=== PATIENT | male | born 1945 | race Caucasian/White ===

== ENCOUNTER 2017-11-08 08:15 | Day surgery (SDC) | payer OTHER ==
[2017-11-08] MEDS: BETADINE OPTH PREP OP PRN ×2 (09:35→10:12)
[2017-11-08] MEDS: TETRACAINE 0.5% UNIT-DOSE OP PRN ×2 (09:35→10:12)
[2017-11-08] MEDS: CYCLOGYL 2% OPTH OP PRN ×3 (09:36→09:46)
[2017-11-08] MEDS ORDERED: LIDOCAINE 1% 20 ML MDV ID STA (09:43)
[2017-11-08] MEDS ORDERED: BRIMONIDINE TARTRATE 0.2% OPTH SOL OP PRN (09:43)
[2017-11-08] MEDS ORDERED: DEX-MOXI-KETOR OPTH INJ 1/0.5/0.4 MG/ML IO ONE (09:43)
[2017-11-08] MEDS ORDERED: LIDOCAINE 1%/PHENYLEPHRINE 1.5% BSS (SURGERY) INTRAOCULA ONE (09:43)
[2017-11-08] MEDS ORDERED: BSS WITH EPINEPHRINE OP ONE (09:43)
[2017-11-08] MEDS ORDERED: ZOFRAN 4 MG/2 ML IVP ONE (09:43)
[2017-11-08] MEDS ORDERED: ZOFRAN 4 MG/2 ML ONE (10:23)
[2017-11-08] MEDS ORDERED: VERSED ONE (10:23)
[2017-11-08] MEDS ORDERED: SUBLIMAZE ONE (10:23)
[2017-11-08 11:29] VITALS: BMI 24.5
[2017-11-08 12:38] VITALS: TEMP 97.3
[2017-11-08 15:29] VITALS: BP 103/62
== END 2017-11-08 11:20 | disposition short-term general hospital (02) ==
LOC: SURG 08:15
PROVIDERS: ATTEND Ophthalmology
DX: H25.811 Combined forms of age-related cataract, right eye (principal)

== ENCOUNTER 2017-11-08 11:21 | Emergency (ER) ==
[2017-11-08 11:29] VITALS: BP 144/85; TEMP 97; BMI 24.5
--- NOTE | 2017-11-08 11:32 | ED.PDOC ---
General ED Provider: Dr. RIGO LORD Chief Complaint: Palpitations Stated Complaint: SLOW HEART RATE. 72 y/o male was in recovery room post cataract surgery OD when he began to experience sinus bradycardia with HR decreased into the 30-40s. Pt asymptomatic. Information given by HEALTH INFORMATION TECHNOLOGIST for surgical department. Had received Cyclogel in the OR Time Seen by Physician: 11:15 Mode of Arrival: Stretcher Information Source: Patient, Nurse Exam Limitations: No limitations Primary Care Provider: BRANT BARTLETT Nursing and Triage Documentation Reviewed and Agree: Yes Does patient meet sepsis criteria?: No If yes, has appropriate treatment been initiated?: No System Inflammatory Response Syndrome: Not Applicable Sepsis Protocol: For patient's 13 years and over: Temp is 96.8 and below OR 101 and greater Pulse >90 BPM Resp >20/minute Acutely Altered Mental Status Are patient's symptoms suggestive of a new infection, such as: -Pneumonia -Skin, Soft Tissue -Endocarditis -UTI -Bone, Joint Infection -Implantable Device -Acute Abdominal Infection -Wound Infection -Meningitis -Blood Stream Catheter Infection -Unknown Cardiovascular Complaint Exam - Palpitations Complaint/Exam Symptoms Are: Still present Timing: Constant Initial Severity: Severe Current Severity: Moderate Character: Reports: Slow Aggravating: Reports: None Alleviating: Reports: None Associated Signs and Symptoms: Reports: Lightheadedness. Denies: Dizziness, Syncope, Chest pain, Shortness of breath, Diaphoresis, Nausea, Vomiting Related Surgical History: Reports: Cardiac Cath, PTCA/Stent, CABG Cardiac Risk Factors: Reports: Hypertension, CAD Pulmonary Embolism Risk Factors: Reports: None Atrial Fibrillation Risk Factors: Reports: None Thyroid Exam: Normal Differential Diagnoses: Other (Bradycardia, 2 nd Degree Mobitz I AV Block) Review of Systems - Review Of Systems Constitutional: Reports: No symptoms Eyes: Reports: No symptoms Ears, Nose, Mouth, Throat: Reports: No symptoms Respiratory: Reports: No symptoms Cardiac: Reports: No symptoms GI: Reports: No symptoms : Reports: No symptoms Musculoskeletal: Reports: No symptoms Skin: Reports: No symptoms Neurological: Reports: No symptoms Endocrine: Reports: No symptoms Hematologic/Lymphatic: Reports: No symptoms All Other Systems: Reviewed and Negative Past Medical History - Past Medical History Previously Healthy: No Endocrine: Reports: None Cardiovascular: Reports: CAD, SD, Hypertension, Other (hx CABG X3) Respiratory: Reports: None Hematological: Reports: Anemia Gastrointestinal: Reports: None Genitourinary: Reports: None Neuro/Psych: Reports: None Musculoskeletal: Reports: None Cancer: Reports: None - Surgical History General Surgical History: Reports: CABG, Stent, Heart Cath - Family History Family History: Reports: Unknown - Social History Hx Substance Use: No Lives: With family Physical Exam - Physical Exam Appearance: Well-nourished Ill-appearing: Mild Pain Distress: None Eyes: RAJINDER, EOMI, Conjunctiva clear ENT: Ears normal, Nose normal, Oropharynx normal Neck: Supple Respiratory: Airway patent, Breath sounds clear, Breath sounds equal, Breath sounds diminished, Respirations nonlabored Cardiovascular: Bradycardia GI/: Soft, Nontender, No masses, Bowel sounds normal, No Organomegaly Musculoskeletal: Normal strength, ROM intact Skin: Warm, Dry, Pale Neurological: Sensation intact, Motor intact, Reflexes intact Critical Care Note - Critical Care Note Total Time (mins): 30 Course - Course Hematology/Chemistry: 11/08/17 11:35 11/08/17 11:35 Orders, Labs, Meds: Lab Review 11/08/17 11/08/17 11:35 11:35 WBC 4.89 RBC 2.85 L Hgb 12.0 L Hct 33.9 L MCV 118.9 H MCH 42.1 H MCHC 35.4 RDW Coeff of Mary Lou 14.0 Plt Count 126 L Immature Gran % (Auto) 0.2 Neut % (Auto) 55.9 Lymph % (Auto) 33.7 [place] % (Auto) 6.3 Eos % (Auto) 3.3 Baso % (Auto) 0.6 Immature Gran # (Auto) 0.0 Neut # (Auto) 2.7 Lymph # (Auto) 1.7 [place] # (Auto) 0.3 L Eos # (Auto) 0.2 Baso # (Auto) 0.0 Anisocytosis Not present Macrocytosis 2+ Sodium 140.4 Potassium 4.58 Chloride 107.0 Carbon Dioxide 29.6 Anion Gap 8.38 BUN 18.4 Creatinine 0.88 Estimated GFR (MDRD) 86.00 BUN/Creatinine Ratio 20.90 Glucose 95.2 Calcium 8.76 Total Bilirubin 0.96 AST 30.7 ALT 21.7 Alkaline Phosphatase 82.7 Troponin I < 0.012 Total Protein 6.59 Albumin 3.64 Globulin 2.95 Albumin/Globulin Ratio 1.23 Orders Category Date Time Status EKG-(ED ONLY) Stat CARDIO 11/08/17 11:28 Completed EKG-(ED ONLY) Stat CARDIO 11/08/17 11:29 Completed EKG-(ED ONLY) Stat CARDIO 11/08/17 13:51 Completed CBC W/ AUTO DIFF Stat LAB 11/08/17 11:35 Completed CMP [COMPREHENSIVE METABOLIC PANEL] Stat LAB 11/08/17 11:35 Completed RBC MORPHOLOGY Stat LAB 11/08/17 11:35 Completed TROPONIN I Stat LAB 11/08/17 11:35 Completed Atropine Sulfate Inj [Atropine Sulfate Pfs] MEDS 11/08/17 11:38 Discontinued 0.5 mg IVP ONCE STA Medications Discontinued Medications Generic Name Dose Route Start Last Admin Trade Name Freq PRN Reason Stop Dose Admin Atropine Sulfate 0.5 mg 11/08/17 11:38 11/08/17 11:44 Atropine Sulfate Pfs IVP 11/08/17 11:39 0.5 mg ONCE STA Administration Vital Signs: Temp Pulse Resp BP Pulse Ox 11/08/17 11:22 97.0 F L 32 L 20 144/85 H 99 CULLEN Risk Score CULLEN Risk Score: Risk Score Odds of by 30D 0 0.1 (0.1-0.2) 1 0.3 (0.2-0.3) 2 0.4 (0.3-0.5) 3 0.7 (0.6-0.9) 4 1.2 (1.0-1.5) 5 2.2 (1.9-2.6) 6 3.0 (2.5-3.6) 7 4.8 (3.8-6.1) Departure - Departure Time of Disposition: 14:40 Disposition: HOME SELF-CARE Discharge Problem: Mobitz (type) I (Wenckebach's) atrioventricular block, Bradyarrhythmia Instructions: Bradycardia (ED), Sick Sinus Syndrome (ED) Condition: Good Pt referred to PMD for follow-up: Yes (1 week) IPMP verified?: No Additional Instructions: See cardioligist in next 1-2 weeks or earlier as needed Allergies/Adverse Reactions: Allergies No Known Allergies Allergy (Verified 11/08/17 11:29) Home Medications: Ambulatory Orders Aspirin 81 mg PO DAILY 11/08/17 Atorvastatin Calcium 20 mg PO BEDTIME 11/08/17 Enalapril Maleate 5 mg PO DAILY 11/08/17 Metoprolol Tartrate 25 mg PO BID 11/08/17 Disposition Discussed With: Patient, Family ED Physician Progress Note ED Physician Progress Note: [] 11/08/17 11:39 After evaluation and review of EKG-HR 38. Atropine 0.5 mg admin IVP Shortly patient's HR iincreased to the 60s 11/08/17 13:48 Patient remains clinically stable. Late reassessment due to eval /tx another patient coding and emerg transfer. Currently pt feeling better without further problem HR NSR 60. Repeating EKG and will discuss with Economic Analyst 11/08/17 14:[address] [place] States patient has had this occur previously 1 yr after endoscopy in RR/HR30s/ recovered well Know to have tolerated 2nd degree AV block intermittently and is usually asymptomatic Recommends discharging pt to home since he is stable Follow up with him in next few weeks/states has standing apt in and will call for earlier apt Pt discharged in stable and satisfactory condition Scheduled for cataract surgery OS in 2 weeks 11/08/17 14:48
[2017-11-08] MEDS: ATROPINE SULFATE PFS IVP STA (11:44)
== END 2017-11-08 15:02 | disposition home or self-care (01) ==
LOC: ED 11:21
DX: I44.1 Atrioventricular block, second degree (principal); I49.5 Sick sinus syndrome; R42 Dizziness and giddiness; I25.810 Atherosclerosis of coronary artery bypass graft(s) without angina pectoris; I25.2 Old myocardial infarction; D64.9 Anemia, unspecified; Z98.890 Other specified postprocedural states; Z95.5 Presence of coronary angioplasty implant and graft
CPT/HCPCS: 36415; 80053; 84484; 85008; 85025; 93005; 93010; 96374; 99283